=== PATIENT | female | born 1990 | race Caucasian/White ===

== ENCOUNTER 2016-12-20 17:39 | Emergency (ER) | payer OTHER | END 2016-12-20 18:36 | disposition home or self-care (01) | LOC: ER 17:39 | DX: R59.1 Generalized enlarged lymph nodes (principal); L98.9 Disorder of the skin and subcutaneous tissue, unspecified; R20.0 Anesthesia of skin; F17.210 Nicotine dependence, cigarettes, uncomplicated; Z88.2 Allergy status to sulfonamides | CPT/HCPCS: 99282; 99283 ==